=== PATIENT | male | born 1955 | race African-American/Black ===

== ENCOUNTER 2024-01-01 18:41 | Emergency (ER) | payer MEDICARE, OTHER, SELFPAY ==
[2024-01-01 18:43] VITALS: BP 152/91
[2024-01-01 19:26] VITALS: BMI 29.3
--- NOTE | 2024-01-01 19:35 | ED.SKININJ ---
HPI-Injury
General
Chief Complaint: Rabies
Source: patient
Time Seen by Provider: 01/01/24 19:25
Travel History
Have you had any contact with someone who has COVID-19?: No
Do you have any symptoms of coronavirus? Fever > 100 degrees, chills, cough, shortness of breath, sore throat, loss of taste or smell, muscle aches, or headache?: No
History of Present Illness-Injury
Initial Injury comments:
68-year-old male with past medical history of hypertension and hyperlipidemia presenting to the emergency department for evaluation after he was bit on the left lower leg by a stray dog while working in [place] earlier this afternoon. Patient
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 Patient is unsure of his last tetanus vaccine as well. No other injuries were sustained.
Past History
Past History
ED Past Medical History: HTN, Hypercholesterolemia and NIDDM (no meds since March 2018)
ED Past Surgical History: Other (Abd hernia repair)
Social History
Tobacco: Non-smoker
Alcohol: None
Drug: None
Personal:
Living: with family
Employment: Employed
Review of Systems
Review of Systems
All Other Systems: ROS reviewed and negative except as documented in HPI and ROS
Phy Exam
Physical Exam
Physical Exam:
GENERAL: Alert , in no apparent distress
EYE: conjunctiva clear
Head: Normocephalic atraumatic
NECK: Supple,
ENT: mmm.
LUNGS: no acute respiratory distress
NEUROLOGICAL: Alert and oriented
SKIN: Warm and dry, 3 small puncture wounds just lateral to the patella of the left lower leg but without any active bleeding. Puncture wounds are quite superficial. Remainder of extremities within normal limits
MUSCULOSKELETAL: well perfused.
PSYCH: Normal and appropriate interaction.
Scores
Heart Failure Risk
Heart Failure Risk Score: Not Applicable
Heart Score for Chest Pain Patients
STEMI patient?: Not applicable
Withdrawal Assessment of Alcohol
Withdrawal Assessment Completed?: Not applicable
Course
Orders/Labs/Results
Orders:
Orders
01/01/24 19:33
Amoxicillin 875 mg/Clav 125 mg [Augmentin 875 mg/125 mg] 1 tablet PO NOW STA
Tetanus/Diphth/Acelpertussis [Adacel] 0.5 ml IM .ONCE ONE
01/01/24 19:41
Rabies Immune Globulin/Pf [HyperRAB] 2,068 unit IM NOW STA
01/01/24 19:45
Rabies Vaccine (Pcec)/Pf [Rabavert Rabies Vacc W-Diluent] 2.5 unit IM .ONCE ONE
Vital Signs
Initial and Last Documented VS:
Initial Vital Signs
Temp Pulse Resp BP Pulse Ox
98.9 F 97 16 152/91 98
01/01/24 18:43 01/01/24 18:43 01/01/24 18:43 01/01/24 18:43 01/01/24 18:43
Last Documented Vital Signs
Temp Pulse Resp BP Pulse Ox
98.9 F 97 16 152/91 98
01/01/24 18:43 01/01/24 18:43 01/01/24 18:43 01/01/24 18:43 01/01/24 18:43
MDM/Problems Addressed
Differential Diagnosis Includes:
Dog bite with superficial puncture wound, potential for rabies given unknown dog, will update tetanus.
MDM/Problems Addressed:
Patient presenting the emergency department for evaluation following being bitten by a stray dog while at work in [place]. There is 3 separate puncture wounds to the left lower leg. Discussed risk first benefit of rabies prophylaxis and
patient wishes to proceed with the vaccination. Will also update patient's tetanus vaccine and treat with 5 days course of Augmentin. Patient will return for any worsening signs of infection. Information provided for outpatient infusion center
for remaining rabies treatments.
*Pulse Oximetry
Patient hypoxic: no
*Critical Care Note
Total Time (30-74mins, 75-104mins- exclusive of procedures): Not Applicable
ED Attending Note
-
Portions of this chart may have been created with voice recognition software.� Occasional wrong word or��sound alike� substitutions may have occurred due to the inherent limitations of voice recognition software.
Discharge Plan
Departure
Patient Disposition: Home (Routine Discharge)
Date of Disposition: 01/01/24
Time of Disposition: 19:35
Patient with high blood pressure during this ER visit?: Yes
Discharge Problem:
Dog bite, Puncture wound of left lower leg
Instructions: Animal Bites (DC)
Prescriptions:
New
amoxicillin-pot clavulanate 875-125 mg tablet
1 tab PO BID Qty: 9 0RF
No Action
lisinopril-hydrochlorothiazide 1 EACH tablet
1 ea PO DAILY
aspirin 81 MG tablet,delayed release (DR/EC)
81 mg PO DAILY
simvastatin 40 MG tablet
40 mg PO DAILY
multivitamin with folic acid [Tab-A-Richelle] 1 TABLET tablet
1 tab PO DAILY
amoxicillin-pot clavulanate 1 TABLET tablet
1 tab PO Q12 Qty: 14 0RF
ondansetron 4 MG tablet,disintegrating
4 mg PO TIDPRN PRN (Reason: nausea/vomiting) Qty: 8 0RF
Lactobac comb [id number] [Probiotic and Acidophilus] 1 EACH capsule
1 ea PO DAILY Qty: 30 0RF
Stand Alone Forms: Rabies Vaccine Post Exp Dosing
Interventions
Interventions:
*Risk Screen - Suicide Last Done: 01/01/24 18:43
*General Assessment Last Done: 01/01/24 18:43
*Neglect/Abuse Screening Last Done: 01/01/24 18:43
*ED COVID-19 Vaccine History Last Done: 01/01/24 18:43
ED-Skin Assessment Last Done: 01/01/24 19:26
[2024-01-01] MEDS: AUGMENTIN 875 MG/125 MG 1 TABLET PO (20:20)
[2024-01-01] MEDS: ADACEL 0.5 ML IM (20:22)
[2024-01-01] MEDS: RABAVERT RABIES VACC W-DILUENT 2.5 UNIT IM (20:25)
[2024-01-01] MEDS: HyperRAB 2068 UNIT IM (20:26)
== END 2024-01-01 20:56 | disposition home or self-care (01) ==
LOC: EMR 18:41
PROVIDERS: EMERGENCY PHYSICIAN Student in an Organized Health Care Education/Training Program; FAMILY PHYSICIAN Physician Assistant Medical
DX: S81.832A Puncture wound without foreign body, left lower leg, initial encounter (principal); W54.0XXA Bitten by dog, initial encounter; I10 Essential (primary) hypertension; Z23 Encounter for immunization; Z20.3 Contact with and (suspected) exposure to rabies; Z29.14 Encounter for prophylactic rabies immune globulin
CPT/HCPCS: 99284; 90471; 96372 ×2; 90375; 90675; 90715

== ENCOUNTER 2024-01-15 09:05 | Outpatient (RCR) | payer MEDICARE, OTHER, SELFPAY ==
[2024-01-05 10:54] VITALS: BP 140/80
[2024-01-05] MEDS: RABAVERT RABIES VACC W-DILUENT 2.5 UNIT IM (11:12)
[2024-01-08 09:20] VITALS: BP 135/81
[2024-01-08] MEDS: RABAVERT RABIES VACC W-DILUENT 2.5 UNIT IM (09:22)
[2024-01-15] MEDS: RABAVERT RABIES VACC W-DILUENT 2.5 UNIT IM (09:18)
[2024-01-15 09:20] VITALS: BP 151/90
== END 2024-01-16 09:45 | disposition home or self-care (01) ==
LOC: OID 09:05
PROVIDERS: ATTENDING PHYSICIAN Student in an Organized Health Care Education/Training Program; FAMILY PHYSICIAN Physician Assistant Medical
DX: Z20.3 Contact with and (suspected) exposure to rabies (principal); Z23 Encounter for immunization
CPT/HCPCS: 90471; 90675